=== PATIENT | male | born 1960 | race Caucasian/White ===

== ENCOUNTER 2023-09-26 06:40 | Emergency (ER) | payer MEDICAID ==
[~2023-09-26] VITALS: Ht 167.6 cm; Wt 83.9 kg
[2023-09-26 07:47] VITALS: BP 158/97; PULSE 106; RESP 18; TEMP 98.4; O2SAT 100
[2023-09-26] MEDS: IBUPROFEN 600 MG TAB PO ONE (08:17)
[2023-09-26 09:45] VITALS: BP 140/66; PULSE 88; RESP 18; TEMP 98.3; O2SAT 96
== END 2023-09-26 09:45 | disposition home or self-care (01) ==
LOC: MED 06:40
DX: S63.591A Other specified sprain of right wrist, initial encounter (principal); M13.831 Other specified arthritis, right wrist; Z79.899 Other long term (current) drug therapy; W05.0XXA Fall from non-moving wheelchair, initial encounter; Y93.89 Activity, other specified; Y92.89 Other specified places as the place of occurrence of the external cause; Y99.8 Other external cause status
CPT/HCPCS: 73110; 99283; Q0092